=== PATIENT | female | born 1985 | race Two or more races ===

== ENCOUNTER 2023-09-25 20:48 | Emergency (ER) | payer MEDICAID ==
[~2023-09-25] VITALS: Ht 198.1 cm; Wt 70.5 kg
[~2023-09-25 20:48] MED LIST: GUAI120015 PO
[2023-09-25 21:12] VITALS: TEMP 98.6
[2023-09-25] MEDS ORDERED: PSEU-303 PO (23:25)
[2023-09-25] MEDS ORDERED: CLIN-197 PO (23:25)
[2023-09-25 23:42] VITALS: BP 112/75; PULSE 77; RESP 16; O2SAT 97
== END 2023-09-25 23:41 | disposition home or self-care (01) ==
LOC: ER 20:50
DX: H66.91 Otitis media, unspecified, right ear (principal); J02.9 Acute pharyngitis, unspecified
CPT/HCPCS: 99283